=== PATIENT | female | born 1975 | race American Indian/Alaskan Native ===

== ENCOUNTER 2018-04-04 08:43 | Outpatient (CLI) | payer BC ==
--- NOTE | 2018-04-04 10:54 | Mammography Report ---
BILATERAL DIGITAL SCREENING MAMMOGRAM with CAD: 04/04/18 08:43:00 CLINICAL: Routine screening.History of bilateral reduction mammoplasty. COMPARISON:12/23/16 and 01/02/17 FINDINGS: The breasts are almost entirely fatty.A few bilateral benign calcifications. No mass, architectural distortion or suspicious calcifications. IMPRESSION: No mammographic evidence of malignancy. BI-RADS CATEGORY: 2 - - Benign RECOMMENDATION: Routine mammographic screening in one year. COMMENT: Patient follow-up letters are generated by our tydy application.
== END 2018-04-04 08:44 | disposition home or self-care (01) ==
LOC: SPVWC 08:43
PROVIDERS: ATTEND Obstetrics & Gynecology
DX: Z12.31 Encounter for screening mammogram for malignant neoplasm of breast (principal)
CPT/HCPCS: 77067

== ENCOUNTER 2020-10-23 10:23 | Outpatient (CLI) | payer BC ==
--- NOTE | 2020-10-23 11:26 | Mammography Report ---
DIGITAL SCREENING MAMMOGRAM WITH CAD, 10/23/2020 CLINICAL INFORMATION / INDICATION: Routine screening mammography. MASTODYNIA N64.4. Left breast pain for 3 months. Left breast injury TECHNIQUE: Digital bilateral 2D mammography was obtained in the craniocaudal and mediolateral obliqu e projections. This examination was interpreted with the benefit of Computer-Aided Detection analysis . COMPARISON: 04/04/2018, 01/02/2017 FINDINGS: Breast Density: There are scattered areas of fibroglandular density. No dominant mass, suspicious calcifications, or architectural distortion in either breast. There are stable benign-appearing calcifications bilaterally. IMPRESSION: No mammographic evidence of malignancy. Follow up recommendation: Clinical correlation with attention to patient's complaint of left breast p ain. Continued yearly screening mammography. Note: Left breast ultrasound was ordered at the time of this exam. This could not be scheduled concur rent with this mammogram. My understanding is that the ultrasound has been scheduled separately on a different day. BI-RADS Category 2: Benign. A "normal" or negative report should not discourage follow up or biopsy of a clinically significant f inding. A written summary of these findings will be mailed to the patient. The patient will be entered into a mammography reporting system which will generate a reminder letter for the patient's next appointmen t at the appropriate interval. The [employer] recommends yearly mammograms starting at age 40 and continuing as l bob as a woman is in good health. Breast MRI is recommended for women with an approximate 20-25% or greater lifetime risk of breast cancer, including women with a strong family history of breast or ova miriam cancer or who have been treated for Hodgkin's disease. Signer Name: Donnell Ashley MD Signed: 10/23/2020 11:21 AM Workstation Name: [id number]
== END 2020-10-23 10:24 | disposition home or self-care (01) ==
LOC: SPVWC 10:23
PROVIDERS: ATTEND Nurse Practitioner Gerontology
DX: R92.1 Mammographic calcification found on diagnostic imaging of breast (principal); N64.4 Mastodynia; N64.89 Other specified disorders of breast
CPT/HCPCS: 77066